=== PATIENT | male | born 1960 | race Caucasian/White ===

== ENCOUNTER 2022-10-07 07:23 | Emergency (ER) | payer MEDICARE, OTHER ==
[~2022-10-07] VITALS: Ht 177.8 cm; Wt 81.6 kg
[2022-10-07 07:34] VITALS: BP 198/125
[2022-10-07] MEDS ORDERED: PRED20TA PO (07:44)
[2022-10-07] MEDS ORDERED: VALA100031 PO (07:44)
[2022-10-07] MEDS ORDERED: HYDR-3973 PO (07:57)
== END 2022-10-07 10:33 | disposition home or self-care (01) ==
LOC: ER 07:23
DX: B02.9 Zoster without complications (principal)
CPT/HCPCS: 99283